=== PATIENT | female | born 1960 | race Caucasian/White ===

== ENCOUNTER 2022-04-28 13:09 | Outpatient (CLI) | payer BC | END 2022-04-28 13:10 | disposition home or self-care (01) | LOC: CSHCT 13:09 | PROVIDERS: ATTEND Physician Assistant | DX: H90.6 Mixed conductive and sensorineural hearing loss, bilateral (principal); H74.92 Unspecified disorder of left middle ear and mastoid | CPT/HCPCS: 70480 ==

== ENCOUNTER 2023-03-02 11:00 | Outpatient (CLI) | payer BC | END 2023-03-02 11:01 | disposition home or self-care (01) | LOC: CSHMAMMO 11:00 | PROVIDERS: ATTEND Family Medicine | DX: Z12.31 Encounter for screening mammogram for malignant neoplasm of breast (principal) | CPT/HCPCS: 77063; 77067 ==

== ENCOUNTER 2024-03-14 10:20 | Outpatient (CLI) | payer BC | END 2024-03-14 10:21 | disposition home or self-care (01) | LOC: CSHMAMMO 10:20 | PROVIDERS: ATTEND Family Medicine | DX: Z12.31 Encounter for screening mammogram for malignant neoplasm of breast (principal) | CPT/HCPCS: 77067 ==